=== PATIENT | female | born 1960 | race Caucasian/White ===

== ENCOUNTER 2019-05-15 16:27 | Inpatient (IN) | payer OTHER ==
[~2019-05-15] VITALS: Ht 165.1 cm; Wt 59.0 kg
[2019-05-15] MEDS ORDERED: SYNTHROID125 MCG PO (16:50)
== END 2019-05-19 18:39 | disposition home or self-care (01) | DRG 392 ==
LOC: ER 16:27 → MEDJ 05-16 08:58
PROVIDERS: ADMIT Internal Medicine
DX: K57.32 Diverticulitis of large intestine without perforation or abscess without bleeding (principal); E03.8 Other specified hypothyroidism; E86.0 Dehydration; E87.8 Other disorders of electrolyte and fluid balance, not elsewhere classified

== ENCOUNTER 2019-07-28 07:41 | Outpatient (CLI) | payer OTHER ==
[~2019-07-28 07:41] MED LIST: SYNTHROID125 MCG PO
== END 2019-07-28 07:54 | disposition home or self-care (01) ==
LOC: TOM 07:41
DX: K57.92 Diverticulitis of intestine, part unspecified, without perforation or abscess without bleeding (principal); K62.5 Hemorrhage of anus and rectum; K56.50 Intestinal adhesions [bands], unspecified as to partial versus complete obstruction

== ENCOUNTER 2020-02-10 17:19 | Emergency (ER) | payer OTHER ==
[~2020-02-10] VITALS: Ht 165.1 cm; Wt 57.6 kg
== END 2020-02-10 22:39 | disposition home or self-care (01) ==
LOC: ER 17:19 → CPU-OBS 17:29 → ER 17:29
DX: R07.89 Other chest pain (principal); Z20.828 Contact with and (suspected) exposure to other viral communicable diseases
CPT/HCPCS: G0378; G0379; 93005

== ENCOUNTER → 2020-04-09 | Outpatient (CLI) | payer OTHER | END | disposition home or self-care (01) | LOC: NUCLEAR 07:35 | PROVIDERS: ATTEND Internal Medicine Cardiovascular Disease | DX: I20.9 Angina pectoris, unspecified (principal) ==

== ENCOUNTER 2020-12-02 09:18 | Emergency (ER) | payer OTHER ==
[~2020-12-02] VITALS: Ht 165.1 cm; Wt 56.7 kg
== END 2020-12-02 15:32 | disposition home or self-care (01) ==
LOC: ER 09:18
DX: K57.90 Diverticulosis of intestine, part unspecified, without perforation or abscess without bleeding (principal); R10.32 Left lower quadrant pain

== ENCOUNTER 2021-07-28 09:50 | Inpatient (IN) | payer OTHER ==
[~2021-07-28] VITALS: Ht 165.1 cm
[2021-07-29] MEDS ORDERED: FAMOTIDINE20 MG (07:48)
[2021-07-29] MEDS ORDERED: FLONASE16 GM (07:48)
[2021-07-29] MEDS ORDERED: PANTOPRAZOLE SO40 MG (07:48)
[2021-07-29] MEDS ORDERED: INTESTINEX680 M1 (07:48)
[2021-07-29] MEDS ORDERED: FLUOXETINE HCL10 MG (07:49)
[2021-08-08] MEDS ORDERED: LEVSIN/SL0.125 MG SL (14:53)
[2021-08-08] MEDS ORDERED: INTESTINEX680 M1 PO (14:53)
== END 2021-08-08 22:32 | disposition home or self-care (01) | DRG 379 ==
LOC: ER 09:50 → SEC-K 16:55 → SURG 16:55
PROVIDERS: ADMIT Surgery; ATTEND Surgery
PROC: BW21YZZ Computerized Tomography (CT Scan) of Abdomen and Pelvis using Other Contrast (ICD-10-PCS; 2021-07-28)
PROC: 0W9G30Z Drainage of Peritoneal Cavity with Drainage Device, Percutaneous Approach (ICD-10-PCS; principal; 2021-07-30)
PROC: 02HV33Z Insertion of Infusion Device into Superior Vena Cava, Percutaneous Approach (ICD-10-PCS; 2021-07-30)
DX: K57.33 Diverticulitis of large intestine without perforation or abscess with bleeding (principal); R10.32 Left lower quadrant pain; E86.0 Dehydration; E87.8 Other disorders of electrolyte and fluid balance, not elsewhere classified; E03.8 Other specified hypothyroidism; Z20.822 Contact with and (suspected) exposure to COVID-19

== ENCOUNTER 2021-08-31 09:15 | Emergency (ER) | payer OTHER ==
[~2021-08-31] VITALS: Ht 167.6 cm; Wt 53.5 kg
[~2021-08-31 09:15] MED LIST changes: +FAMOTIDINE20 MG; +FLONASE16 GM; +FLUOXETINE HCL10 MG; +INTESTINEX680 M1; +INTESTINEX680 M1 PO; +LEVSIN/SL0.125 MG SL; +PANTOPRAZOLE SO40 MG
[2021-08-31] MEDS ORDERED: CIPRO500 MG PO (15:42)
[2021-08-31] MEDS ORDERED: INTESTINEX680 M1 PO (15:42)
[2021-08-31] MEDS ORDERED: METRONIDAZOLE500 MG PO (15:42)
== END 2021-08-31 16:28 | disposition home or self-care (01) ==
LOC: ER 09:15
DX: R19.7 Diarrhea, unspecified (principal)

== ENCOUNTER 2021-10-27 10:01 | Outpatient (CLI) | payer OTHER ==
[~2021-10-27 10:01] MED LIST changes: +CIPRO500 MG PO; +METRONIDAZOLE500 MG PO
== END 2021-10-27 10:02 | disposition home or self-care (01) ==
LOC: NUCLEAR 10:01
PROVIDERS: ATTEND Internal Medicine
DX: I73.9 Peripheral vascular disease, unspecified (principal)

== ENCOUNTER 2021-11-16 10:45 | Inpatient (IN) | payer OTHER ==
[~2021-11-16] VITALS: Ht 165.1 cm; Wt 52.2 kg
[2021-11-16] MEDS ORDERED: PEPCID PO (13:39)
[2021-11-16] MEDS ORDERED: VITAMIN D310 MCG/1 M PO (13:39)
[2021-11-21] MEDS ORDERED: FAMOTIDINE20 MG (13:46)
[2021-11-21] MEDS ORDERED: PRAMIPEXOLE D0.25 MG (13:46)
[2021-11-21] MEDS ORDERED: FLUOXETINE HCL20 MG (13:46)
[2021-11-21] MEDS ORDERED: MAG-OXIDE400 MG (13:47)
[2021-11-21] MEDS ORDERED: SUCRALFATE1 GM (13:47)
[2021-11-21] MEDS ORDERED: VITAMIN D3125 MC1 (13:47)
[2021-11-21] MEDS ORDERED: PERCOCET 5-3251 EACH PO (17:03)
[2021-11-21] MEDS ORDERED: INTEGRA PLUS C1 EACH PO (17:04)
== END 2021-11-22 00:09 | disposition home or self-care (01) | DRG 331 ==
LOC: SURH 11-18 07:00 → O/R 11-18 07:56 → SURH 11-18 10:45 → SURG 11-18 12:17
PROVIDERS: ADMIT Surgery; ATTEND Surgery
PROC: 0DBP4ZZ Excision of Rectum, Percutaneous Endoscopic Approach (ICD-10-PCS; 2021-11-18)
PROC: 0DJD8ZZ Inspection of Lower Intestinal Tract, Via Natural or Artificial Opening Endoscopic (ICD-10-PCS; 2021-11-18)
PROC: 0DTN4ZZ Resection of Sigmoid Colon, Percutaneous Endoscopic Approach (ICD-10-PCS; principal; 2021-11-18 15:30)
DX: K57.20 Diverticulitis of large intestine with perforation and abscess without bleeding (principal); R10.9 Unspecified abdominal pain; R19.4 Change in bowel habit; E03.8 Other specified hypothyroidism; K29.00 Acute gastritis without bleeding; Z20.822 Contact with and (suspected) exposure to COVID-19

== ENCOUNTER 2023-05-10 10:26 | Outpatient (CLI) | payer OTHER ==
[~2023-05-10 10:26] MED LIST changes: +FLUOXETINE HCL20 MG; +INTEGRA PLUS C1 EACH PO; +MAG-OXIDE400 MG; +PEPCID PO; +PERCOCET 5-3251 EACH PO; +PRAMIPEXOLE D0.25 MG; +SUCRALFATE1 GM; +VITAMIN D310 MCG/1 M PO; +VITAMIN D3125 MC1
== END 2023-05-10 10:39 | disposition home or self-care (01) ==
LOC: MRI 10:26
PROVIDERS: ATTEND Family Medicine
DX: M75.42 Impingement syndrome of left shoulder (principal)
CPT/HCPCS: 73221

== ENCOUNTER 2024-11-21 09:53 | Outpatient (CLI) | payer OTHER | END 2024-11-21 09:55 | disposition home or self-care (01) | LOC: SONOGRAMA 09:53 | DX: R10.13 Epigastric pain (principal) ==

== ENCOUNTER → 2025-06-10 09:14 | Outpatient (CLI) | payer OTHER | END | disposition home or self-care (01) | LOC: MRI 09:14 | DX: C34.12 Malignant neoplasm of upper lobe, left bronchus or lung (principal) | CPT/HCPCS: 70553; 72158 ==